=== PATIENT | male | born 1945 | race Caucasian/White ===

== ENCOUNTER 2017-05-15 15:57 | Inpatient (IN) | payer OTHER, MEDICARE ==
[~2017-05-15] VITALS: Ht 193 cm; Wt 111.4 kg
[2017-05-15 16:00] VITALS: BP 141/82; PULSE 70; RESP 16; TEMP 98; O2SAT 95
--- NOTE | 2017-05-15 16:27 | PD ---
HPI Chief Complaint: Psychiatric Symptoms Time Seen by Provider: 16:25 Travel History International Travel<30 days: No Contact w/Intl Traveler<30days: No Traveled to known affect area: No History of Present Illness HPI 71-year-old male presents to the emergency Department under Dias act by local police. [facility] became concerned [facility] and called the police to do a well-being check. The patient states that his in November. He moved here approximately a month ago from [place], [place] to start over. However, he states it is not working. Patient is crying on my exam. He states that he is depressed. He does not believe that his antidepressants aren't working anymore. However, he denies any suicidal or homicidal ideation. He denies any alcohol or illicit drug use. He has no medical complaints at this time. PFSH Past Medical History Anxiety: Yes Depression: Yes High Cholesterol: Yes Hypertension: Yes Psychiatric: Yes (PTSD) Thyroid Disease: Yes Tetanus Vaccination: < 5 Years Influenza Vaccination: Yes Past Surgical History Abdominal Surgery: Yes (COLON RESECTION ; 4 HERNIA SURGERIES) Cholecystectomy: Yes Social History Alcohol Use: No Tobacco Use: No Substance Use: No Allergies-Medications (Allergen,Severity, Reaction): Coded Allergies: No Known Allergies (Unverified , 05/15/17) Review of Systems Except as stated in HPI: all other systems reviewed are Neg Physical Exam Narrative GENERAL: Well-nourished, well-developed male patient, Ambulatory. Afebrile. SKIN: Focused skin assessment warm/dry. HEAD: Normocephalic. Atraumatic. EYES: No scleral icterus. No injection or drainage. NECK: Supple, trachea midline. No JVD or lymphadenopathy. CARDIOVASCULAR: Regular rate and rhythm without murmurs, gallops, or rubs. RESPIRATORY: Breath sounds equal bilaterally. No accessory muscle use. Lungs sounds are clear to auscultation. GASTROINTESTINAL: Abdomen soft, non-tender, nondistended. MUSCULOSKELETAL: No cyanosis, or edema. PSYCHIATRIC: No delusional thought processes. No hallucinations. Patient is tearful on my exam. Data Data Last Documented VS Vital Signs Date Time Temp Pulse Resp B/P (MAP) Pulse Ox O2 Delivery O2 Flow Rate FiO2 05/15/17 16:00 98.0 70 16 141/82 (101) 95 Orders Orders Complete Blood Count With Diff (05/15/17 16:04) Comprehensive Metabolic Panel (05/15/17 16:04) Psych Screen (05/15/17 16:04) Drug Screen, Random Urine (05/15/17 16:04) Alcohol (Ethanol) (05/15/17 16:04) Salicylates (Aspirin) (05/15/17 16:04) Tylenol (Acetaminophen) (05/15/17 16:04) Urinalysis - C+S If Indicated (05/15/17 16:04) Labs Laboratory Tests Test 05/15/17 16:34 05/15/17 16:43 Urine Color YELLOW Urine Turbidity CLEAR Urine pH 5.5 Urine Specific [place] 1.027 Urine Protein TRACE mg/dL Urine Glucose (UA) NEG mg/dL Urine Ketones NEG mg/dL Urine Occult Blood NEG Urine Nitrite NEG Urine Bilirubin NEG Urine Urobilinogen LESS THAN 2.0 MG/DL Urine Leukocyte Esterase NEG Urine RBC 1 /hpf Urine WBC 2 /hpf Urine Squamous Epithelial Cells <1 /hpf Urine Mucus FEW /lpf Microscopic Urinalysis Comment CULT NOT INDICATED Urine Opiates Screen NEG Urine Barbiturates Screen NEG Urine Amphetamines Screen NEG Urine Benzodiazepines Screen NEG Urine Cocaine Screen NEG Urine Cannabinoids Screen NEG White Blood Count 6.5 TH/MM3 Red Blood Count 6.12 MIL/MM3 Hemoglobin 16.8 GM/DL Hematocrit 51.1 % Mean Corpuscular Volume 83.5 FL Mean Corpuscular Hemoglobin 27.4 PG Mean Corpuscular Hemoglobin Concent 32.8 % Red Cell Distribution Width 14.9 % Platelet Count 168 TH/MM3 Mean Platelet Volume 8.9 FL Neutrophils (%) (Auto) 59.0 % Lymphocytes (%) (Auto) 23.0 % Monocytes (%) (Auto) 11.8 % Eosinophils (%) (Auto) 5.2 % Basophils (%) (Auto) 1.0 % Neutrophils # (Auto) 3.8 TH/MM3 Lymphocytes # (Auto) 1.5 TH/MM3 Monocytes # (Auto) 0.8 TH/MM3 Eosinophils # (Auto) 0.3 TH/MM3 Basophils # (Auto) 0.1 TH/MM3 CBC Comment DIFF FINAL Differential Comment Blood Urea Nitrogen 15 MG/DL Creatinine 1.44 MG/DL Random Glucose 99 MG/DL Total Protein 8.0 GM/DL Albumin 4.3 GM/DL Calcium Level 9.5 MG/DL Alkaline Phosphatase 92 U/L Aspartate Amino Transf (AST/SGOT) 23 U/L Alanine Aminotransferase (ALT/SGPT) 28 U/L Total Bilirubin 0.7 MG/DL Sodium Level 140 MEQ/L Potassium Level 4.0 MEQ/L Chloride Level 108 MEQ/L Carbon Dioxide Level 26.3 MEQ/L Anion Gap 6 MEQ/L Estimat Glomerular Filtration Rate 48 ML/MIN Salicylates Level LESS THAN 1.7 MG/DL Acetaminophen Level LESS THAN 2.0 MCG/ML Ethyl Alcohol Level LESS THAN 3 MG/DL MDM Medical Decision Making Medical Screen Exam Complete: Yes Emergency Medical Condition: Yes Medical Record Reviewed: Yes Differential Diagnosis Depression versus anxiety versus bipolar disorder Narrative Course 71-year-old male presents to the emergency Department under Dias act by local police. Patient reports depression since his . He denies any suicidal ideation at this time. CBC, CMP, alcohol level, salicylate level, Tylenol level, UA, urine drug screen are ordered and pending. CBC shows no acute abnormality. CMP shows no acute abnormality. Salicylate level is less than 1.7. Acetaminophen level is less than 2.0. UDS is negative. Alcohol level is less than 3. UA is negative for acute infection. Patient is medically cleared for psychiatric screening and disposition. Mental health screening discussed with the patient. Psychiatric screen ordered. Diagnosis Primary Impression: Depression Qualified Codes: F32.9 - Major depressive disorder, single episode, unspecified Additional Instructions: Patient is medically cleared for psychiatric screening and disposition. Condition: Stable Fang Singh DEBBIE May 15, 2017 16:27
[2017-05-15 17:12] LABS: BLOOD, URINE NEG (NEG); COMMENT (UR) CULT NOT INDICATED; CULTURE IF INDICATED CULT NOT INDICATED; GLUCOSE,URINE NEG (NEG); KETONE, URINE NEG (NEG); MUCUS URINE FEW /lpf (OCC); NITRITE,URINE NEG (NEG); PH, URINE 5.5 (5.0-8.5); SQUAMOUS EPITHELIAL CELL URINE <1 /hpf (0-5); URINE COLOR YELLOW (YELLW/STRAW)
[2017-05-15 17:13] LABS: AUTOMATED NEUTROPHIL # 3.8 TH/MM3 (1.8-7.7); BASOPHIL # 0.1 TH/MM3 (0-0.2); EOSINOPHIL # 0.3 TH/MM3 (0-0.4); EOSINOPHIL % 5.2 % (0.0-4.0); HEMATOCRIT 51.1 % (39.0-51.0); HEMO FLAGS DIFF FINAL; LYMPHOCYTE # 1.5 TH/MM3 (1.0-4.8); MEAN CELL VOLUME 83.5 FL (80.0-100.0); MEAN CORPUSCULAR HEMOGLOBIN 27.4 PG (27.0-34.0); MEAN CORPUSCULAR HGB CONC 32.8 % (32.0-36.0); MONO % 11.8 % (0.0-8.0); PLATELET COUNT 168 TH/MM3 (150-450); RED BLOOD COUNT 6.12 MIL/MM3 (4.50-5.90); RED CELL DISTRIBUTION WIDTH 14.9 % (11.6-17.2); WHITE BLOOD COUNT 6.5 TH/MM3 (4.0-11.0)
[2017-05-15 17:27] LABS: ANION GAP 6 MEQ/L (5-15); AST (GOT) 23 U/L (15-37); BICARBONATE 26.3 MEQ/L (21.0-32.0); BLOOD UREA NITROGEN 15 MG/DL (7-18); CHLORIDE 108 MEQ/L (98-107); GLOMERULAR FILTRATION RATE 48 ML/MIN (>89); SODIUM (NA) 140 MEQ/L (136-145)
[2017-05-15 17:28] LABS: ALT (GPT) 28 U/L (12-78)
[2017-05-15 17:30] LABS: ALKALINE PHOSPHATASE 92 U/L (45-117); TOTAL BILIRUBIN ADULT 0.7 MG/DL (0.2-1.0)
[2017-05-15 17:31] LABS: ALCOHOL LESS THAN 3 MG/DL (0-5)
[2017-05-15 17:32] LABS: ACETAMINOPHEN LESS THAN 2.0 MCG/ML (10.0-30.0)
[2017-05-15] MEDS ORDERED: ZOLP1SPR PO (19:58)
[2017-05-15] MEDS ORDERED: LISI-515 PO (19:58)
[2017-05-15] MEDS ORDERED: DULO1CAP2 PO (19:58)
[2017-05-15] MEDS ORDERED: LORA-474 PO (19:58)
[2017-05-15] MEDS ORDERED: FENO160T PO (19:58)
[2017-05-15] MEDS ORDERED: OXYC1TAB35 PO (19:58)
[2017-05-15] MEDS ORDERED: FINA5TAB2 PO (19:58)
[2017-05-15] MEDS ORDERED: PREG300 PO (19:58)
[2017-05-15] MEDS ORDERED: CARV6.252 PO (19:58)
[2017-05-15 22:18] VITALS: BP 151/75; PULSE 79; RESP 18; O2SAT 96
[2017-05-16] MEDS ORDERED: ALUMINUM/MAGNESIUM/SIMETH 30 ML CUP PO PRN
[2017-05-16] MEDS ORDERED: MAGNESIUM HYDROXIDE SUSP 30 ML CUP PO PRN
[2017-05-16] MEDS ORDERED: diphenhydrAMINE HCL 25 MG CAP PO PRN (00:15)
[2017-05-16 02:30] VITALS: BP_SYST 158; BP_SYST 171; BP_DIAS 94; BP_DIAS 97; PULSE 71; RESP 20; TEMP 98.3; O2SAT 96
[2017-05-16] MEDS ORDERED: FINASTERIDE 5 MG TAB PO SCH (09:00)
[2017-05-16] MEDS ORDERED: FENOFIBRATE 145 MG TAB PO SCH (09:00)
[2017-05-16] MEDS ORDERED: REMOVE OLD PATCH T-DERMAL SCH (09:00)
[2017-05-16] MEDS ORDERED: CARVEDILOL 6.25 MG TAB PO SCH (09:00)
[2017-05-16] MEDS ORDERED: NICOTINE 21 MG/24 HR PATCH T-DERMAL SCH (09:00)
[2017-05-16] MEDS: PREGABALIN 100 MG CAP PO SCH ×2 (09:00→14:00)
[2017-05-16] MEDS ORDERED: DULoxetine HCl DR 30 MG CAP PO SCH (09:00)
[2017-05-16] MEDS ORDERED: oxyCODONE/ACETAMINOPHEN 7.5 MG/325 MG TAB PO PRN (09:30)
[2017-05-16] MEDS ORDERED: DIATRIZOATE MEGLUM/DIATRIZOATE SOD 9 ML CUP PO ONE (10:00)
[2017-05-16] MEDS ORDERED: ACETAMINOPHEN 325 MG TAB PO PRN ×2 (12:15)
[2017-05-16] MEDS ORDERED: hydrOXYzine HCL 50 MG TAB PO PRN (12:15)
--- NOTE | 2017-05-16 12:30 | HHI.HP ---
Provisional Diagnosis Admission Date May 15, 2017 at 23:48 [place] I. PTSD f 43.10, major depressive disorder recurrent severe F 33.2 Certification of Person's Competence To Provide Express and Informed Consent I have personally examined Yash Pickens , a person being served at [facility] on, May 16, 2017 12:13. Express and informed consent means consent voluntarily given in writing, by a competent person, after sufficient explanation and disclosure of the subject matter involved to enable the person to make a knowing and willful decision without any element of force, fraud, deceit, duress, or other form of constraint or coercion. This person is 18 years of age or older, is not now known to be incompetent to consent to treatment with a guardian advocate, and does not have a health care surrogate or proxy currently making medical treatment decisions. I have found this person to be one of the following: [xxx] Competent to provide express and informed consent, as defined above, for voluntary admission to this facility and is competent to provide express and informed consent for treatment. He/she has the consistent capacity to make well reasoned, willful, and knowing decisions concerning his or her medical or mental health treatment. The person fully and consistently understands the purpose of the admission for examination/placement and is fully capable of personally exercising all rights assured under [place] Incompetent to provide express and informed consent to voluntary admission, and this is incompetent to provide express and informed consent to treatment. The person must be transferred to involuntary status and a petition for a guardian advocate filed with the Circuit Court. [] Refusing to provide express and informed consent to voluntary admission but is competent to provide express and informed consent for treatment. The person must be discharged or transferred to involuntary status. Form shall be completed within 24 hours of a person's arrival at the receiving facility and filed in the clinical record of each person: 1. Admitted on a voluntary basis 2. Permitted to provide express and informed consent to his/her own treatment 3. Allowed to transfer from involuntary to voluntary status 4. Prior to permitting a person to consent to his or her own treatment after having been previously found incompetent to consent to treatment. History of Present Illness Capacity: Has Capacity HPI Patient is a 71-year-old white male [place] with history PTSD. Is moved here about one month ago from [facility]. 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 He moved here to get away from his memories. Into be closer to a cousin. He bought a double wide where he is now living. From his cousin. He also lost a very good friend in October of this year. About a week ago he saw on Facebook message wishing this friend happy birthday. It appears this is the precipitant for him having about a 4 day crying spells. This led to his [facility] claiming the depression with vague suicidal ideation. Psychiatrist calling police to medical wellness check it appears he reiterated the same statements. Relating to the [place] act and his assessment here. Patient was Dias acted by the police that document has been reviewed in the chart for perusal. Patient is seen, screened in the ED. Urine toxicology negative blood alcohol level negative. At the present time patient sitting quietly in his room on 2500 counselor Maddi present throughout session. Patient is a tall white male appears stated age short esqueda hair and chart esqueda goatee. He has a sad face. He says he still misses his . He states he does have some sleep difficulties. Primarily early a.m. arising. He states his appetite is fair there is no weight change. He is showing some anhedonia. He denies alcohol or drug use with this. He denies voices or visions. He states this been some increased social isolation. Some decrease attention and concentration. Some decreased coping. He states he has had some vague suicidal ideation but denies any intent or plan. He denies any prior suicide attempts. He does acknowledge a brief hospitalization in the related to his PTSD. He now sees a psychiatrist [facility] and goes to the PTSD groups. He lives in a double wide trailer with 2 cats. He is quite attached to. He denies any past physical or sexual abuse. Though he states he did have an older sister who committed suicide. Patient does have siblings who live in [place] that he is close to. He is considering relocating from [place] to [place] to be closer to his family of origin. In any event at the present time patient also has multiple medical issues stemming from complications related to distant appendectomy her recent colon resection for a polyp in the right lower quadrant that led to what appears to been some peritonitis. He has had multiple ventral hernias. Is complaining of right lower quadrant pain at the present time. The hospitalist has been called. Patient is scheduled at this time for CT of the abdomen and further testing. At this time I feel patient does have capacity to sign voluntary under the Dias act thus I'll lift the Dias act allow her to sign voluntary. Tuyet considering allowing the patient to be discharged to himself if the medical workup comes back negative and he is medically cleared. He is able contracted me to do no harm. He has sufficient medications at home. He does have appropriate follow-up at the [place] [facility]. Though for now we will consider all options until we get the test results back However the present time we'll continue his medications per the med reconciliation Review of Systems Constitutional: DENIES: Diaphoretic episodes, Fatigue, Fever, Weight gain, Weight loss, Chills, Dizziness, Change in appetite, Night Sweats Endocrine: DENIES: Heat/cold intolerance, Polydipsia, Polyuria, Polyphagia Eyes: DENIES: Blurred vision, Diplopia, Eye inflammation, Eye pain, Vision loss , Photosensitivity, Double Vision Ears, nose, mouth, throat: DENIES: Tinnitus, Hearing loss, Vertigo, Nasal discharge, Oral lesions, Throat pain, Hoarseness, Ear Pain, Running Nose, Epistaxis, Sinus Pain, Toothache, Odynophagia Respiratory: DENIES: Apneas, Cough, Snoring, Wheezing, Hemoptysis, Sputum production, Shortness of breath Cardiovascular: DENIES: Chest pain, Palpitations, Syncope, Dyspnea on Exertion , PND, Lower Extremity Edema, Orthopnea, Claudication Gastrointestinal: COMPLAINS OF: Abdominal pain Genitourinary: DENIES: Sexual dysfunction, Urinary frequency, Urinary incontinence, Urgency, Hematuria, Dysuria, Nocturia, Penile Discharge, Testicular Pain, Testicular Swelling Musculoskeletal: DENIES: Joint pain, Muscle aches, Stiffness, Joint Swelling, Back pain, Neck pain Integumentary: DENIES: Abnormal pigmentation, Nail changes, Pruritus, Rash Hematologic/lymphatic: DENIES: Bruising, Lymphadenopathy Immunologic/allergic: DENIES: Eczema, Urticaria Neurologic: DENIES: Abnormal gait, Headache, Localized weakness, Paresthesias, Seizures, Speech Problems, Tremor, Poor Balance Psychiatric: COMPLAINS OF: Depression, Suicidal Ideation (denies at this time able contracted to no harm) Past Psych History Psychological trauma history Patient depressed over recent of his November this year, of his good friend October of this year Violence risk - others (6 mos) Low Violence risk - self (6 mos) Patient able contracted to no harm says he is not able to kill himself Substance Abuse History Drugs/Alcohol past 12 months Denies Past Family Social History Coded Allergies: No Known Allergies (Unverified , 05/15/17) Past Medical History Multiples please see hospitalist Reported Medications Oxycodone-Acetaminophen (Oxycodone-Acetaminophen) 7.5-325 mg Tab, 1 TAB PO Q6H Y for PAIN, TAB 0 Refills 05/15/17 Fenofibrate (Fenofibrate) 160 Mg Tab, 160 MG PO DAILY, #30 TAB 0 Refills 05/15/17 Lisinopril (Lisinopril) 20 Mg Tab, 20 MG PO DAILY, #30 TAB 0 Refills 05/15/17 Finasteride (Finasteride) 5 Mg Tab, 5 MG PO DAILY for Manage Prostate Problems, #30 TAB 0 Refills Do not crush. 05/15/17 Lorazepam (Ativan) 1 Mg Tab, 1 MG PO Q8H Y for ANXIETY AND/OR AGITATION, TAB 0 Refills 05/15/17 Zolpidem Tartrate (Zolpimist) 5 Mg/Act Spr, 10 MG PO HS 05/15/17 Carvedilol (Carvedilol) 6.25 Mg Tab, 6.25 MG PO BID, #60 TAB 0 Refills 05/15/[address] (Duloxetine DR) 30 Mg Capdr, 90 MG PO DAILY, #30 CAP 0 Refills 05/15/17 Pregabalin (Lyrica) 300 Mg Cap, 300 MG PO TID, #90 CAP 0 Refills 05/15/17 Current Medications Medications (Trade) Dose Ordered Sig/[place] Route Start Time Stop Time Status Last Admin (Ativan) 0.5 mg Q12H PRN PO 05/16/17 00:00 05/16/17 02:56 (Ativan Inj) 0.5 mg Q12H PRN IM 05/16/17 00:00 (Benadryl) 25 mg HS PRN PO 05/16/17 00:15 05/16/17 02:56 (Tylenol) 650 mg Q4H PRN PO 05/16/17 00:00 (Milk Of Magnesia Liq) 30 ml DAILY PRN PO 05/16/17 00:00 (Mag-Al Plus Susp Liq) 30 ml Q6H PRN PO 05/16/17 00:00 (Habitrol 21 Mg Patch.24 Hr) 1 patch DAILY T-DERMAL 05/16/17 09:00 Miscellaneous Information 1 DAILY T-DERMAL 05/16/17 09:00 (Coreg) 6.25 mg BID PO 05/16/17 09:00 05/16/17 09:00 (Cymbalta Dr) 90 mg DAILY PO 05/16/17 09:00 05/16/17 09:00 (Proscar) 5 mg DAILY PO 05/16/17 09:00 05/16/17 09:00 (Tricor) 145 mg DAILY PO 05/16/17 09:00 05/16/17 09:00 (Lyrica) 100 mg TID PO 05/16/17 09:00 (Percocet 7.5-325 Mg) 1 tab Q6H PRN PO 05/16/17 09:30 05/16/17 10:15 Family History Patient states has a sister who committed suicide Social History Patient continues to grieve over the of his third and the of a good friend Patient's Strengths (min. 2) Patient verbal irritable access healthcare is cooperative Physical Exam Patient seen screen in ED exam reviewed with and agreed with. Patient sitting quietly in his room on 2500, he is in no acute distress though he is comfortable at times rubbing his right lower quadrant of his abdomen. There is no respiratory difficulty patient moving all 4 extremities without difficulty there are no abnormal motor movements Vital Signs Vital Signs Date Time Temp Pulse Resp B/P (MAP) Pulse Ox O2 Delivery O2 Flow Rate FiO2 05/16/17 02:30 98.3 71 20 171/97 (121) 96 158/94 (115) 05/15/17 22:18 Room Air I/O 05/16/17 05/16/17 05/17/17 08:00 16:00 00:00 Intake Total 0 ml Balance 0 ml Lab Results Test 05/15/17 16:34 05/15/17 16:43 Urine Color YELLOW Urine Turbidity CLEAR Urine pH 5.5 Urine Specific [place] 1.027 Urine Protein TRACE mg/dL Urine Glucose (UA) NEG mg/dL Urine Ketones NEG mg/dL Urine Occult Blood NEG Urine Nitrite NEG Urine Bilirubin NEG Urine Urobilinogen LESS THAN 2.0 MG/DL Urine Leukocyte Esterase NEG Urine RBC 1 /hpf Urine WBC 2 /hpf Urine Squamous Epithelial Cells <1 /hpf Urine Mucus FEW /lpf Microscopic Urinalysis Comment CULT NOT INDICATED Urine Opiates Screen NEG Urine Barbiturates Screen NEG Urine Amphetamines Screen NEG Urine Benzodiazepines Screen NEG Urine Cocaine Screen NEG Urine Cannabinoids Screen NEG White Blood Count 6.5 TH/MM3 Red Blood Count 6.12 MIL/MM3 Hemoglobin 16.8 GM/DL Hematocrit 51.1 % Mean Corpuscular Volume 83.5 FL Mean Corpuscular Hemoglobin 27.4 PG Mean Corpuscular Hemoglobin Concent 32.8 % Red Cell Distribution Width 14.9 % Platelet Count 168 TH/MM3 Mean Platelet Volume 8.9 FL Neutrophils (%) (Auto) 59.0 % Lymphocytes (%) (Auto) 23.0 % Monocytes (%) (Auto) 11.8 % Eosinophils (%) (Auto) 5.2 % Basophils (%) (Auto) 1.0 % Neutrophils # (Auto) 3.8 TH/MM3 Lymphocytes # (Auto) 1.5 TH/MM3 Monocytes # (Auto) 0.8 TH/MM3 Eosinophils # (Auto) 0.3 TH/MM3 Basophils # (Auto) 0.1 TH/MM3 CBC Comment DIFF FINAL Differential Comment Blood Urea Nitrogen 15 MG/DL Creatinine 1.44 MG/DL Random Glucose 99 MG/DL Total Protein 8.0 GM/DL Albumin 4.3 GM/DL Calcium Level 9.5 MG/DL Alkaline Phosphatase 92 U/L Aspartate Amino Transf (AST/SGOT) 23 U/L Alanine Aminotransferase (ALT/SGPT) 28 U/L Total Bilirubin 0.7 MG/DL Sodium Level 140 MEQ/L Potassium Level 4.0 MEQ/L Chloride Level 108 MEQ/L Carbon Dioxide Level 26.3 MEQ/L Anion Gap 6 MEQ/L Estimat Glomerular Filtration Rate 48 ML/MIN Salicylates Level LESS THAN 1.7 MG/DL Acetaminophen Level LESS THAN 2.0 MCG/ML Ethyl Alcohol Level LESS THAN 3 MG/DL Mental Status Examination Alert oriented white male appears stated age calm cooperative with me with good eye contact though with a dysphoric appearance Appearance Clean neatly Speech: Unremarkable Orientation: x3 Memory: Unremarkable Thought Process: Logical, Organized Thought Content: Unremarkable Language Fair Fund of Knowledge Fair Hallucination Type: None Attention and Concentration: Other (there) Suicidal Ideation: Yes (denies at the present time able contracted to no harm) Previous Suicide Attempts: No Homicidal Ideation: No Previous Homicide Attempts: No Insight: Poor (to fair) Judgment: Poor (to fair) Affect: Other Mood: Sad Motor Activity: Normal gait Assessment & Plan Problem List: (1) Major depressive disorder, recurrent episode, severe ICD Codes: F33.2 - Major depressive disorder, recurrent severe without psychotic features (2) PTSD (post-traumatic stress disorder) ICD Codes: F43.10 - Post-traumatic stress disorder, unspecified Assessment & Plan This delightful patient has capacity thus I'll lift Dias act allow him to sign voluntary. He is able contracted to no harm and follow-up was medications and services through the [place] [facility]. However he is at this from going for CT scan his abdomen getting further testing. Final decision about admission versus discharge await to after those results. At the present time we'll continue medications per the med reconciliation Discharge Planning See above Request HC Surrog/Guard Advoc?: No Johnie Noel MD May 16, 2017 12:30
--- NOTE | 2017-05-16 12:58 | RADRPT ---
EXAM DATE/TIME: 05/16/2017 12:26 [facility] COMPARISON: No previous studies available for comparison. INDICATIONS : Right side abdominal pain. ORAL CONTRAST: No oral contrast ingested. RADIATION DOSE: 16.00 CTDIvol (mGy) MEDICAL HISTORY : Hypertension. SURGICAL HISTORY : Colon resection. Cholecystectomy. ENCOUNTER: Initial ACUITY: 1 day PAIN SCALE: 5/10 LOCATION: Right abdomen TECHNIQUE: Volumetric scanning of the abdomen and pelvis was performed. Using automated exposure control and ad justment of the mA and/or kV according to patient size, radiation dose was kept as low as reasonably achievable to obtain optimal diagnostic quality images. DICOM format image data is available electro nically for review and comparison. FINDINGS: LOWER LUNGS: The visualized lower lungs are clear. LIVER: Diffuse decreased density without lesion. There is no dilation of the biliary tree. There has been p rior cholecystectomy clips in the gallbladder fossa. SPLEEN: Normal size without lesion. PANCREAS: Within normal limits. KIDNEYS: Normal in size and shape. There is no mass, stone, or hydronephrosis. ADRENAL GLANDS: Within normal limits. VASCULAR: There is no aortic aneurysm. There is mild atherosclerotic disease. BOWEL/MESENTERY: The stomach, small bowel, and colon demonstrate no acute abnormality. There is no free intraperitone al air or fluid. There is sigmoid diverticulosis. Clips are present at the base of the cecum. ABDOMINAL WALL: At the right lateral midabdomen there is a small hernia containing fat and a portion of small bowel. There are changes in the right lower quadrant likely related to prior ostomy. RETROPERITONEUM: There is no lymphadenopathy. BLADDER: No wall thickening or mass. REPRODUCTIVE: Within normal limits. INGUINAL: There is no lymphadenopathy or hernia. MUSCULOSKELETAL: There are degenerative changes of the lumbar spine. In the left femoral neck there is predominantly l ucent lesion that is partially visualized but measures at least 5.5 cm. CONCLUSION: 1. No acute finding is identified to explain the right-sided abdominal pain. There is a small hernia on the right lateral abdominal wall containing fat and small intestine. However, there are no inflamm atory changes or signs of obstruction. 2. There is a predominantly lytic/lucent lesion in the left femoral neck measuring greater than 5 cm. Although nonspecific, fibrous dysplasia is a top consideration. Consider dedicated left hip x-rays f or better visualization. Also correlate with any prior imaging studies, if available. 3. Nonacute findings include hepatic steatosis, sigmoid diverticulosis, and mild atherosclerotic dise ase. Johnie Graham MD on May 16, 2017 at 12:39 Board Certified Radiologist. This report was verified electronically.
[2017-05-16] MEDS ORDERED: LORazepam 0.5 MG TAB PO PRN ×2 (14:00)
[2017-05-16] MEDS ORDERED: LORazepam 2 MG/ML VIAL IM PRN ×2 (14:00)
--- NOTE | 2017-05-16 14:47 | PD.CONS ---
[facility] Request[facility] By Dr. Odonnell Reason for Consult Medical management Primary Care Physician No Primary Care Physician Diagnoses: History of Present Illness The pt is a 71 year old male with a past medical history of hernia s/p multiple repairs who is presenting to the hospital with depression. His in November from [place] and he has been having a hard time coping with that. He also noticed on Facebook that one of his friend's birthday is coming up, but that friend had and that triggered the patient to get even more depressed. He said he started crying on Friday and cried for 4 days straight. He called the [place] psychiatrist and voiced thoughts about not caring if he so the [place] sent police to the patient's store. The patient was brought into the hospital at that time. The patient currently wishes to go home. He says he has no suicidal intent. The patient does complain of 5 out of 10 abdominal pain in the right lower quadrant. He says that the pain is normally controlled with oxycodone which he usually takes 3 times a day. He says he has had 4 prior surgeries for hernias in that area. He also complains of lower back pain that has been chronic in nature. 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 HTN HLP Depression Past Surgical History Colon resection s/t polyp Hernia repair x 4 Active Ordered Medications Current Medications Medications (Trade) Dose Ordered Sig/[place] Route Start Time Stop Time Status Last Admin (Benadryl) 25 mg HS PRN PO 05/16/17 00:15 05/16/17 02:56 (Tylenol) 650 mg Q4H PRN PO 05/16/17 00:00 (Milk Of Magnesia Liq) 30 ml DAILY PRN PO 05/16/17 00:00 (Mag-Al Plus Susp Liq) 30 ml Q6H PRN PO 05/16/17 00:00 (Habitrol 21 Mg Patch.24 Hr) 1 patch DAILY T-DERMAL 05/16/17 09:00 Miscellaneous Information 1 DAILY T-DERMAL 05/16/17 09:00 (Coreg) 6.25 mg BID PO 05/16/17 09:00 05/16/17 09:00 (Cymbalta Dr) 90 mg DAILY PO 05/16/17 09:00 05/16/17 09:00 (Proscar) 5 mg DAILY PO 05/16/17 09:00 05/16/17 09:00 (Tricor) 145 mg DAILY PO 05/16/17 09:00 05/16/17 09:00 (Lyrica) 100 mg TID PO 05/16/17 09:00 05/16/17 14:00 (Percocet 7.5-325 Mg) 1 tab Q6H PRN PO 05/16/17 09:30 05/16/17 10:15 (Tylenol) 650 mg Q4H PRN PO 05/16/17 12:15 (Atarax) 50 mg Q6H PRN PO 05/16/17 12:15 (Ativan) 0.5 mg Q8H PRN PO 05/16/17 14:00 (Ativan Inj) 0.5 mg Q8H PRN IM 05/16/17 14:00 Family History Depression, the pt's sister committed suicide Social History The pt does not smoke, drink or use illicit substances Physical Exam Vital Signs Vital Signs Date Time Temp Pulse Resp B/P (MAP) Pulse Ox O2 Delivery O2 Flow Rate FiO2 05/16/17 12:27 18 05/16/17 02:30 98.3 71 20 171/97 (121) 96 158/94 (115) 05/15/17 22:18 79 18 151/75 (100) 96 Room Air 05/15/17 16:00 98.0 70 16 141/82 (101) 95 Physical Exam GENERAL: This is a well-nourished, well-developed patient, appearing uncomfortably. SKIN: No rashes, ecchymoses or lesions. Cool and dry. HEAD: Atraumatic. Normocephalic. No temporal or scalp tenderness. EYES: Pupils equal round and reactive. Extraocular motions intact. No scleral icterus. No injection or drainage. ENT: Nose without bleeding, purulent drainage or septal hematoma. Throat without erythema, tonsillar hypertrophy or exudate. Uvula midline. Airway patent. NECK: Trachea midline. No JVD or lymphadenopathy. Supple, nontender, no meningeal signs. CARDIOVASCULAR: Regular rate and rhythm without murmurs, gallops, or rubs. RESPIRATORY: Clear to auscultation. Breath sounds equal bilaterally. No wheezes , rales, or rhonchi. GASTROINTESTINAL: Abdomen soft, slightly tender in the right lower quadrant. Old surgical scars are present. No guarding. MUSCULOSKELETAL: Extremities without clubbing, cyanosis, or edema. No joint tenderness, effusion, or edema noted. NEUROLOGICAL: Awake and alert. Cranial nerves II through XII intact. Motor and sensory grossly within normal limits. Five out of 5 muscle strength in all muscle groups. Normal speech. PSYCH: Slightly anxious. Laboratory Laboratory Tests Test 05/15/17 16:34 05/15/17 16:43 Urine Color YELLOW Urine Turbidity CLEAR Urine pH 5.5 Urine Specific [place] 1.027 Urine Protein TRACE Urine Glucose (UA) NEG Urine Ketones NEG Urine Occult Blood NEG Urine Nitrite NEG Urine Bilirubin NEG Urine Urobilinogen LESS THAN 2.0 Urine Leukocyte Esterase NEG Urine RBC 1 Urine WBC 2 Urine Squamous Epithelial Cells <1 Urine Mucus FEW Microscopic Urinalysis Comment CULT NOT INDICATED Urine Opiates Screen NEG Urine Barbiturates Screen NEG Urine Amphetamines Screen NEG Urine Benzodiazepines Screen NEG Urine Cocaine Screen NEG Urine Cannabinoids Screen NEG White Blood Count 6.5 Red Blood Count 6.12 Hemoglobin 16.8 Hematocrit 51.1 Mean Corpuscular Volume 83.5 Mean Corpuscular Hemoglobin 27.4 Mean Corpuscular Hemoglobin Concent 32.8 Red Cell Distribution Width 14.9 Platelet Count 168 Mean Platelet Volume 8.9 Neutrophils (%) (Auto) 59.0 Lymphocytes (%) (Auto) 23.0 Monocytes (%) (Auto) 11.8 Eosinophils (%) (Auto) 5.2 Basophils (%) (Auto) 1.0 Neutrophils # (Auto) 3.8 Lymphocytes # (Auto) 1.5 Monocytes # (Auto) 0.8 Eosinophils # (Auto) 0.3 Basophils # (Auto) 0.1 CBC Comment DIFF FINAL Differential Comment Blood Urea Nitrogen 15 Creatinine 1.44 Random Glucose 99 Total Protein 8.0 Albumin 4.3 Calcium Level 9.5 Alkaline Phosphatase 92 Aspartate Amino Transf (AST/SGOT) 23 Alanine Aminotransferase (ALT/SGPT) 28 Total Bilirubin 0.7 Sodium Level 140 Potassium Level 4.0 Chloride Level 108 Carbon Dioxide Level 26.3 Anion Gap 6 Estimat Glomerular Filtration Rate 48 Salicylates Level LESS THAN 1.7 Acetaminophen Level LESS THAN 2.0 Ethyl Alcohol Level LESS THAN 3 Result Diagram: 05/15/17 1643 05/15/17 1643 Imaging Last Impressions Abdomen/Pelvis CT 05/16/17 0000 Signed Impressions: Service Date/Time: Tuesday, May 16, 2017 12:26 - CONCLUSION: 1. No acute finding is identified to explain the right-sided abdominal pain. There is a small hernia on the right lateral abdominal wall containing fat and small intestine. However, there are no inflammatory changes or signs of obstruction. 2. There is a predominantly lytic/lucent lesion in the left femoral neck measuring greater than 5 cm. Although nonspecific, fibrous dysplasia is a top consideration. Consider dedicated left hip x-rays for better visualization. Also correlate with any prior imaging studies, if available. 3. Nonacute findings include hepatic steatosis, sigmoid diverticulosis, and mild atherosclerotic disease. Johnie Graham MD Assessment and Plan Assessment and Plan Depression Situational, s/t the of his and a friend of his. - management per psych Right lower quadrant pain Chronic. S/t hernias. He says it's normally controlled by Percocet. CT abdomen showed: No acute finding is identified to explain the right-sided abdominal pain ; There is a small hernia on the right lateral abdominal wall containing fat and small intestine; However, there are no inflammatory changes or signs of obstruction. The pt is feeling better and would like to go home. He is afebrile and without leukocytosis. - continue home pain control regimen. - recommend to follow up with a surgeon at the [place] for correction of hernia as it does seem to be bothering him. Left femoral neck abnormality CT showed: There is a predominantly lytic/lucent lesion in the left femoral neck measuring greater than 5 cm; Although nonspecific, fibrous dysplasia is a top consideration. - dedicated left hip x-rays recommended for better visualization. The pt would like to pursue this as an outpt. Low back pain Chronic. - lumbar spine imaging recommended as an outpt. Also, physical therapy is recommended. Renal insufficiency Unsure of baseline. - encourage intake of free water. - would hold lisinopril until follows up with PCP. May start amlodipine 5 mg daily in the interim. PPx: Ambulation Discussed Condition With Pt, pt's nurse, Shashi Peterson DO May 16, 2017 14:47
--- NOTE | 2017-05-16 14:48 | HHI.DS ---
Psychiatry Discharge Summary Inpatient Psychiatric care?: Yes Advance Directive: No Reason Not Provided: Due to Patient Condition Mental Health AdvanceDirective: No Health Care Proxy: No Admission Admission Date May 15, 2017 at 23:48 Admission Diagnosis: (1) Major depressive disorder, recurrent episode, severe ICD Code: F33.2 - Major depressive disorder, recurrent severe without psychotic features (2) PTSD (post-traumatic stress disorder) ICD Code: F43.10 - Post-traumatic stress disorder, unspecified Brief History Patient is a 71-year-old white male [place] with history PTSD. Is moved here about one month ago from [facility]. 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 He moved here to get away from his memories. Into be closer to a cousin. He bought a double wide where he is now living. From his cousin. He also lost a very good friend in October of this year. About a week ago he saw on Facebook message wishing this friend happy birthday. It appears this is the precipitant for him having about a 4 day crying spells. This led to his calling his [place] psychiatrist claiming the depression with vague suicidal ideation. Psychiatrist calling police to medical wellness check it appears he reiterated the same statements. Relating to the Dias act and his assessment here. Patient was Dias acted by the police that document has been reviewed in the chart for perusal. Patient is seen, screened in the ED. Urine toxicology negative blood alcohol level negative. At the present time patient sitting quietly in his room on 2500 counselor Maddi present throughout session. Patient is a tall white male appears stated age short esqueda hair and chart esqueda goatee. He has a sad face. He says he still misses his . He states he does have some sleep difficulties. Primarily early a.m. arising. He states his appetite is fair there is no weight change. He is showing some anhedonia. He denies alcohol or drug use with this. He denies voices or visions. He states this been some increased social isolation. Some decrease attention and concentration. Some decreased coping. He states he has had some vague suicidal ideation but denies any intent or plan. He denies any prior suicide attempts. He does acknowledge a brief hospitalization in the related to his PTSD. He now sees a psychiatrist the [place] [facility] in [facility] and goes to the PTSD groups. He lives in a double wide trailer with 2 cats. He is quite attached to. He denies any past physical or sexual abuse. Though he states he did have an older sister who committed suicide. Patient does have siblings who live in [place] that he is close to. He is considering relocating from [place] to [place] to be closer to his family of origin. In any event at the present time patient also has multiple medical issues stemming from complications related to distant appendectomy her recent colon resection for a polyp in the right lower quadrant that led to what appears to been some peritonitis. He has had multiple ventral hernias. Is complaining of right lower quadrant pain at the present time. The hospitalist has been called. Patient is scheduled at this time for CT of the abdomen and further testing. At this time I feel patient does have capacity to sign voluntary under the Dias act thus I'll lift the Dias act allow her to sign voluntary. Tuyet considering allowing the patient to be discharged to himself if the medical workup comes back negative and he is medically cleared. He is able contracted me to do no harm. He has sufficient medications at home. He does have appropriate follow-up at the [place] clinic. Though for now we will consider all options until we get the test results back However the present time we'll continue his medications per the med reconciliation Tobacco Use In Past 30 Days: No Tobacco Past 30 Days Alcohol Use: Never Hospital Course Please see above note under brief history. At this time patient denies suicidality homicidality voices or visions. He also contracted to no harm. And follow-up through the [place] outpatient clinic in [facility]. For medication management and counseling. He is appropriate medications at home. CT of the abdomen has been done, that has been reviewed by the hospitalist. The hospitalist has also examined the patient and given medical clearance for discharge Results Blood Pressure 158 / 94 Vital Signs Date Time Temp Pulse Resp B/P (MAP) Pulse Ox O2 Delivery O2 Flow Rate FiO2 05/16/17 12:27 18 05/16/17 02:30 98.3 71 171/97 (121) 96 158/94 (115) 05/15/17 22:18 Room Air Laboratory Tests Test 05/15/17 16:34 05/15/17 16:43 Urine Mucus FEW /lpf (OCC) Red Blood Count 6.12 MIL/MM3 (4.50-5.90) Hematocrit 51.1 % (39.0-51.0) Monocytes (%) (Auto) 11.8 % (0.0-8.0) Eosinophils (%) (Auto) 5.2 % (0.0-4.0) Creatinine 1.44 MG/DL (0.60-1.30) Chloride Level 108 MEQ/L (98-107) Estimat Glomerular Filtration Rate 48 ML/MIN (>89) Salicylates Level LESS THAN 1.7 MG/DL Acetaminophen Level LESS THAN 2.0 MCG/ML Summary of Procedures None done Imaging Last Impressions Abdomen/Pelvis CT 05/16/17 0000 Signed Impressions: Service Date/Time: Tuesday, May 16, 2017 12:26 - CONCLUSION: 1. No acute finding is identified to explain the right-sided abdominal pain. There is a small hernia on the right lateral abdominal wall containing fat and small intestine. However, there are no inflammatory changes or signs of obstruction. 2. There is a predominantly lytic/lucent lesion in the left femoral neck measuring greater than 5 cm. Although nonspecific, fibrous dysplasia is a top consideration. Consider dedicated left hip x-rays for better visualization. Also correlate with any prior imaging studies, if available. 3. Nonacute findings include hepatic steatosis, sigmoid diverticulosis, and mild atherosclerotic disease. Johnie Graham MD Pending results at discharge: No Medications # of Antipsychotic meds at D/C: 0 Approp Antipsych med options 1 - Minimum of three failed multiple trials of monotherapy. 2 - Documented plan to taper to monotherapy due to previous use of multiple meds OR cross-taper in progress at D/C. 3 - Documentation of augmentation of Clozapine. 4 - Justification other than those listed in allowable values 1-3, document here : Discharge Discharge Date: May 16, 2017 Discharge Diagnosis: (1) Major depressive disorder, recurrent episode, severe Diagnosis: Principal ICD Code: F33.2 - Major depressive disorder, recurrent severe without psychotic features (2) PTSD (post-traumatic stress disorder) Diagnosis: Secondary ICD Code: F43.10 - Post-traumatic stress disorder, unspecified Mental Status Exam at Disch Alert oriented white male calm cooperative appears stated age. Knees normal active. His mood is dysphoric with good range intensity of his affect. Speech rate and rhythm are within normal limits though no formal thought disorders. The auditory or visual hallucinations. No delusions. Insight and judgment is fair. Patient does denies suicidality. Is able contracted to no harm Pt Condition on Discharge: Stable Discharge Disposition: Discharge Home Discharge Instructions Diet Instructions: As Tolerated, No Restrictions Activities you can perform: Regular-No Restrictions Scheduled Appointment: [place] clinic Appointment Date: May 19, 2017 Appointment Time: 10:00am Discharge Time > 30 minutes Discharge/Advance Care Plan Health Problems: (1) Major depressive disorder, recurrent episode, severe (2) PTSD (post-traumatic stress disorder) Goals to promote your health * To prevent worsening of your condition and complications * To maintain your health at the optimal level Directions to meet your goals Take your medications as prescribed Follow your dietary instruction Follow activity as directed Keep your appointments as scheduled Take your immunizations and boosters as scheduled If your symptoms worsen call your PCP, if no PCP go to Urgent Care Center or Emergency Room For 14/04 questions related to your inpatient stay or results of tests pending at discharge, please contact Dr. Johnie Noel at Smoking is Dangerous to Your Health. Avoid second hand smoking Johnie Noel MD May 16, 2017 14:48
[2017-05-16 15:16] VITALS: RESP 18
[2017-05-16] MEDS ORDERED: AMLO5TAB2 PO (16:32)
== END 2017-05-16 16:20 | disposition home or self-care (01) | DRG 882 ==
LOC: NEPJ 15:57 → NEDA 23:48 → H250 05-16 02:29
PROVIDERS: ADMIT Psychiatry & Neurology Psychiatry; ATTEND Psychiatry & Neurology Psychiatry
DX: F43.10 Post-traumatic stress disorder, unspecified (principal); F33.2 Major depressive disorder, recurrent severe without psychotic features; R45.851 Suicidal ideations; F43.21 Adjustment disorder with depressed mood; G89.29 Other chronic pain; M54.5 Low back pain; E78.5 Hyperlipidemia, unspecified; I10 Essential (primary) hypertension; N28.9 Disorder of kidney and ureter, unspecified
CPT/HCPCS: 74176; 80053; 80307; 81001; 85025; Q9963